=== PATIENT | male | born 1960 | race Hispanic/Latino ===

== ENCOUNTER → 2019-11-23 | Outpatient (CLI) | payer OTHER ==
[2019-11-23 11:37] LABS: INR 1.34; PARTIAL THROMBOPLASTIN TIME 37.4 seconds (23.8-35.5); PROTHROMBIN TIME 17.2 seconds (11.9-14.5)
--- NOTE | 2019-11-23 12:26 | Diagnostic Imaging Report ---
EXAM: Limited abdominal ultrasound INDICATION: Hepatic cirrhosis COMPARISON: None. TECHNIQUE: Transverse and longitudinal images of the 4 quadrants of the abdomen were obtained to evaluate for ascites. FINDINGS: No visible ascites. IMPRESSION: No visible ascites. The previously ordered paracentesis was thus not performed. Signed by: Eileen Sheikh MD on 11/23/2019 12:23 PM
--- NOTE | 2019-11-23 12:59 | Diagnostic Imaging Report ---
EXAM: US ABDOMEN COMPLETE DATE: 11/23/2019 11:36 AM INDICATION: Hepatic cirrhosis COMPARISON: None TECHNIQUE: Transverse and longitudinal whittaker scale and color doppler sonographic images of the upper abdomen were obtained. FINDINGS: LIVER 17.4 cm in the right midclavicular line. Cirrhotic liver surface contour. No focal mass. SPLEEN 17.6 cm in maximum diameter. Normal echogenicity, no masses. GALLBLADDER No gallbladder wall thickening, distension, stone, or pericholecystic fluid. Negative reported sonographic Armstrong's sign. The gallbladder wall measures 3mm BILE DUCTS No intra nor extra-hepatic biliary dilation. Common bile duct measures 5mm PANCREAS: Visualized portions are normal. RIGHT KIDNEY: 11.2 cm Echogenicity: Normal Collecting System: No hydronephrosis Stones: None Cyst/Mass: None LEFT KIDNEY: 12.5 cm Echogenicity: Normal Collecting System: No hydronephrosis Stones: None Cyst/Mass: None VESSELS: Aorta: Visualized portions are within normal size limits Inferior Vena Cava: Visualized portions are normal Main Portal Vein: 1.4 cm, normal size with hepatopetal flow. FREE FLUID: None IMPRESSION: Hepatic cirrhosis. Splenomegaly. Signed by: Eileen Sheikh MD on 11/23/2019 12:55 PM
== END ==
LOC: US 10:43
PROVIDERS: ATTEND Internal Medicine Gastroenterology
DX: K74.60 Unspecified cirrhosis of liver (principal)
CPT/HCPCS: 36415; 76700; 76705; 85014; 85049; 85610; 85730

== ENCOUNTER → 2020-01-19 | Day surgery (SDC) | payer OTHER ==
[2020-01-14 10:35] LABS: BASOPHILS # (AUTO) 0.1 (0.0-0.1); BASOPHILS % 0.8 % (0.0-1.0); EOSINOPHILS # (AUTO) 0.6 (0.0-0.4); EOSINOPHILS % 7.5 % (0.0-6.0); HEMATOCRIT 40.9 % (38.2-49.6); HEMOGLOBIN 15.3 g/dL (14.0-18.0); LYMPHOCYTES # (AUTO) 2.9 (1.0-3.2); LYMPHOCYTES % 37.3 % (18.0-39.1); MEAN CORPUSCULAR HEMOGLOBIN 32.6 pg (28-32); MEAN CORPUSCULAR HGB CONC 37.4 g/dL (31-35); MEAN CORPUSCULAR VOLUME 87.2 fL (81-99); MONOCYTES # (AUTO) 0.8 (0.2-0.8); MONOCYTES % 9.8 % (4.4-11.3); NEUTROPHILS # (AUTO) 3.4 (2.1-6.9); NEUTROPHILS % 44.1 % (38.7-80.0); PLATELET COUNT 102 x10e3/uL (140-360); RED BLOOD COUNT 4.69 x10e6/uL (4.3-5.7); RED CELL DISTRIBUTION WIDTH 13.5 % (11.7-14.4)
[2020-01-14 10:41] LABS: INR 1.34; PROTHROMBIN TIME 17.2 seconds (11.9-14.5)
[2020-01-14 10:42] LABS: PARTIAL THROMBOPLASTIN TIME 37.7 seconds (23.8-35.5)
[2020-01-14 10:51] LABS: ALANINE AMINOTRANSFERASE 53 IU/L (0-55); ALBUMIN 4.1 g/dL (3.5-5.0); ALBUMIN/GLOBULIN RATIO 0.9 (0.8-2.0); ALKALINE PHOSPHATASE 64 IU/L (40-150); ANION GAP 12.1 mmol/L (8-16); BLOOD UREA NITROGEN 11 mg/dL (7-26); BUN/CREATININE RATIO 14 (6-25); CALCIUM 8.6 mg/dL (8.4-10.2); CARBON DIOXIDE 26 mmol/L (22-29); CHLORIDE 102 mmol/L (98-107); CREATININE, SERUM 0.79 mg/dL (0.72-1.25); EST GLOMERULAR FILTRATION RATE > 60 ML/MIN (60-); GLUCOSE 135 mg/dL (74-118); POTASSIUM 3.1 mmol/L (3.5-5.1); SODIUM 137 mmol/L (136-145)
[~2020-01-19] VITALS: Ht 167.6 cm; Wt 120.2 kg
[~2020-01-19] MED LIST: ALDACTONE25 MG PO; DICYCLOMINE HCL10 MG PO; FENTANYL CITRATE/PF 100MCG/2 ML INJ ONE; GABAPENTIN100 MG PO; LACTULOSE20 GM/30 M PO; LASIX40 MG PO; LEVOTHYROXINE100 MC1 IV; LEVOTHYROXINE100 MC1 PO; METFORMIN HCL500 MG PO; METHOCARBAMOL750 MG PO; MIDAZOLAM HCL 2 MG/2 ML VIAL ONE; NEXIUM20 MG PO; NORCO 10-325 T1 EACH PO; PROMETHAZINE HC25 M1 PO; PROPOFOL IV EMULSION 10 MG/ML 20 ML VIAL ONE; SENNA LAX8.6 MG PO; SPIRONOLACTONE25 MG PO; TIZANIDINE HCL4 MG PO; XANAX2 MG PO
[2020-01-19 16:50] VITALS: BP 165/87
== END | disposition home or self-care (01) ==
LOC: OR 13:49
PROVIDERS: ATTEND Internal Medicine Gastroenterology
DX: K74.60 Unspecified cirrhosis of liver (principal); I85.10 Secondary esophageal varices without bleeding; K29.50 Unspecified chronic gastritis without bleeding; K31.89 Other diseases of stomach and duodenum; K63.89 Other specified diseases of intestine; K22.8 Other specified diseases of esophagus; K76.6 Portal hypertension; K57.30 Diverticulosis of large intestine without perforation or abscess without bleeding; K64.8 Other hemorrhoids; Z01.810 Encounter for preprocedural cardiovascular examination; Z01.812 Encounter for preprocedural laboratory examination; Z20.828 Contact with and (suspected) exposure to other viral communicable diseases
CPT/HCPCS: 36415 ×2; 43239; 45380; 80053; 82948; 84132; 85025; 85610; 85730; 93005; J2250; J2704; J3010; U0002; 45378

== ENCOUNTER → 2020-02-01 | Outpatient (CLI) | payer OTHER ==
[~2020-02-01] MED LIST changes: +ALBUMIN 25% 12.5GM 50ML 0 ML IV ONE; -FENTANYL CITRATE/PF 100MCG/2 ML INJ ONE; -MIDAZOLAM HCL 2 MG/2 ML VIAL ONE; -PROPOFOL IV EMULSION 10 MG/ML 20 ML VIAL ONE
== END ==
LOC: US 12:28
PROVIDERS: ATTEND Internal Medicine Gastroenterology
DX: K74.60 Unspecified cirrhosis of liver (principal)
CPT/HCPCS: 76705